=== PATIENT | female | born 1965 | race African-American/Black ===

== ENCOUNTER 2020-02-29 20:38 | Emergency (ER) | payer SELFPAY ==
[2020-02-29] MEDS ORDERED: Sodium Chloride 0.9% 1,000 ML IV ONE (21:28)
[2020-02-29] MEDS ORDERED: Ketorolac 30 MG/ML SDV IVPUSH ONE ×2 (21:28→23:41)
[2020-02-29] MEDS ORDERED: Ondansetron 4 MG/2 ML SDV IVPUSH ONE (21:28)
[2020-02-29] MEDS ORDERED: fentaNYL 100 MCG/2 ML SDV IVPUSH ONE (21:44)
[2020-02-29 22:05] LABS: ANION GAP 9.3 mEq/L (7-13); CHLORIDE,CL 104 mmol/L (98-107); SODIUM,NA 142 mmol/L (136-145)
--- NOTE | 2020-02-29 22:19 | EDM.PDOC ---
ED HPI GENERAL MEDICAL PROBLEM - General Chief Complaint: Headache Stated Complaint: HEADACHE Time Seen by Provider: 02/29/20 21:10 Source of Information: Reports: Patient, RN Notes Reviewed - History of Present Illness INITIAL COMMENTS - FREE TEXT/NARRATIVE: ED with c/o headache to top of head x 3 days with chills and sore throat. No nausea or vomiting ,diarrhea yesterday. no abdominal pain. no urinary symptoms. Recent routine testing at [facility] yesterday for COVID unknown results. No known exposure. Tried tylenol but not helping. Occipital Head Pain Score (Numeric/FACES): 10 - Related Data Allergies Allergy/AdvReac Type Severity Reaction Status Date / Time No Known Allergies Allergy Verified 02/29/20 20:54 Home Meds: Home Meds amLODIPine [Norvasc] 5 mg PO DAILY 12/02/19 [History] Past Medical History HEENT History: Reports: None Cardiovascular History: Reports: Hypertension Respiratory History: Reports: None Gastrointestinal History: Reports: None Genitourinary History: Reports: None [employer] History: Reports: Musculoskeletal History: Reports: None Neurological History: Reports: None Psychiatric History: Reports: None Endocrine/Metabolic History: Reports: Obesity/BMI 30+ Hematologic History: Reports: None Immunologic History: Reports: None Oncologic (Cancer) History: Reports: None Dermatologic History: Reports: None - Past Surgical History Cardiovascular Surgical History: Reports: None Female Surgical History: Reports: Hysterectomy Endocrine Surgical History: Reports: None Social & Family History - Family History Family Medical History: No Pertinent Family History - Tobacco Use Tobacco Use Status *Q: Never Tobacco User - Caffeine Use Caffeine Use: Reports: Coffee - Recreational Drug Use Recreational Drug Use: No ED ROS GENERAL - Review of Systems Review Of Systems: Comprehensive ROS is negative, except as noted in HPI. - Physical Exam Exam: See Below Exam Limited By: No Limitations General Appearance: Alert, Moderate Distress Eye Exam: Bilateral Eye: EOMI, PERRL, Other (photosensitivity) Ears: Normal External Exam, Hearing Grossly Normal, Normal TMs Nose: Normal Inspection Throat/Mouth: Normal Inspection, No Airway Compromise Head Exam: Atraumatic, Normocephalic Neck: Normal Inspection, Non-Tender, Lymphadenopathy (L), Lymphadenopathy (R), Other (no nuccal rigidity) Respiratory/Chest: No Respiratory Distress, Lungs Clear, Normal Breath Sounds Cardiovascular: Normal Peripheral Pulses, Regular Rate, Rhythm GI/Abdominal: Normal Bowel Sounds, Soft Neuro Exam (Abbreviated): Alert, Oriented, Normal Cognition Back Exam: Normal Inspection, Full Range of Motion Extremities: Normal Inspection, Normal Range of Motion Psychiatric: Normal Affect Skin Exam: Warm, Dry, Intact, Normal Color Course - Vital Signs Last Recorded V/S: Last Vital Signs Temp 97 F 02/29/20 20:49 Pulse 79 02/29/20 20:49 Resp 16 02/29/20 20:49 BP 138/103 H 02/29/20 20:49 Pulse Ox 100 02/29/20 20:49 - Orders/Labs/Meds Orders: Active Orders 24 hr Category Date Time Status CORONAVIRUS COVID-19 PCR PHL Stat Lab 02/29/20 21:53 Ordered CULTURE STREP A CONFIRMATION [RM] Stat Lab 02/29/20 21:40 Results STREP SCRN A RAPID W CULT CONF [RM] Stat Lab 02/29/20 21:40 Results Isolation [COMM] Routine Oth 02/29/20 21:45 Active Labs: Laboratory Tests 02/29/20 02/29/20 02/29/20 Range/Units 21:40 21:40 21:40 WBC 5.5 (5.0-10.0) 10^3/uL RBC 4.66 (4.2-5.4) 10^6/uL Hgb 13.1 (12.0-16.0) g/dL Hct 38.5 (37.0-47.0) % MCV 82.6 (80-100) fL MCH 28.1 (27.0-34.0) pg MCHC 34.0 (33.0-35.0) g/dL Plt Count 326 (150-450) 10^3/uL Neut % (Auto) 33.5 L (42.2-75.2) % Lymph % (Auto) 52.2 H (20.5-50.1) % Faulkner % (Auto) 9.6 H (2-8) % Eos % (Auto) 4.3 H (1.0-3.0) % Baso % (Auto) 0.4 (0.0-1.0) % Sodium 142 (136-145) mmol/L Potassium 3.3 L (3.5-5.1) mmol/L Chloride 104 (98-107) mmol/L Carbon Dioxide 32 (21-32) mmol/L Anion Gap 9.3 (7-13) mEq/L BUN 11 (7-18) mg/dL Creatinine 0.89 (0.55-1.02) mg/dL Est Cr Clr Drug Dosing 63.85 mL/min Estimated GFR (MDRD) > 60 BUN/Creatinine Ratio 12.4 (No establ ref range) Glucose 104 H (74-99) mg/dL Calcium 8.5 (8.5-10.1) mg/dL Total Bilirubin 0.4 (0.2-1.0) mg/dL AST 42 H (15-37) U/L ALT 73 H (14-59) U/L Alkaline Phosphatase 83 (46-116) U/L Total Protein 7.2 (6.4-8.2) g/dL Albumin 3.3 L (3.4-5.0) g/dL Globulin 3.9 Albumin/Globulin Ratio 0.85 SARS CoV-2 RNA Rapid LULU Negative (NEGATIVE) Meds: Medications Discontinued Medications Generic Name Dose Route Start Last Admin Trade Name Alex PRN Reason Stop Dose Admin Fentanyl 50 mcg 02/29/20 21:44 02/29/20 22:23 Sublimaze IVPUSH 02/29/20 21:45 50 mcg ONETIME ONE Administration Sodium Chloride 1,000 mls @ 999 mls/hr 02/29/20 21:28 02/29/20 22:15 Normal Saline IV 02/29/20 22:28 999 mls/hr .BOLUS ONE Administration Ketorolac Tromethamine 30 mg 02/29/20 21:28 Toradol IVPUSH 02/29/20 21:29 ONETIME ONE Ketorolac Tromethamine 30 mg 02/29/20 23:41 03/01/20 00:02 Toradol IVPUSH 02/29/20 23:42 30 mg ONETIME ONE Administration Ondansetron HCl 4 mg 02/29/20 21:28 02/29/20 22:21 Zofran IVPUSH 02/29/20 21:29 4 mg ONETIME ONE Administration - Re-Assessments/Exams Free Text/Narrative Re-Assessment/Exam: intermittent light dozing, no difficulty with arousal. Some improvement in GALLEGOS with medication. Departure - Departure Time of Disposition: 00:16 Disposition: Home, Self-Care 01 Condition: Good Clinical Impression: Headache Qualifiers: Headache type: unspecified Headache chronicity pattern: unspecified pattern Intractability: not intractable Qualified Code(s): R51.9 - Headache, unspecified - Discharge Information *PRESCRIPTION DRUG MONITORING PROGRAM REVIEWED*: No *COPY OF PRESCRIPTION DRUG MONITORING REPORT IN PATIENT HAYLEE: No Instructions: General Headache Without Cause, [id number] Referrals: PCP,None [Primary Care Provider] - Forms: ED Department Discharge Additional Instructions: increase fluids rest alternate tylenol and ibuprofen every 4 hours as needed for discomfort clinic follow up if not improving Sepsis Event Note (ED) - Evaluation Sepsis Screening Result: No Definite Risk - Focused Exam Vital Signs: Vital Signs Temp Pulse Resp BP Pulse Ox 02/29/20 20:49 97 F 79 16 138/103 H 100 - My Orders Last 24 Hours: My Active Orders 02/29/20 21:40 CULTURE STREP A CONFIRMATION [RM] Stat STREP SCRN A RAPID W CULT CONF [RM] Stat 02/29/20 21:45 Isolation [COMM] Routine 02/29/20 21:53 CORONAVIRUS COVID-19 PCR PHL Stat - Assessment/Plan Last 24 Hours: My Active Orders 02/29/20 21:40 CULTURE STREP A CONFIRMATION [RM] Stat STREP SCRN A RAPID W CULT CONF [RM] Stat 02/29/20 21:45 Isolation [COMM] Routine 02/29/20 21:53 CORONAVIRUS COVID-19 PCR PHL Stat
--- NOTE | 2020-02-29 22:53 | CT ---
PROCEDURE INFORMATION: Exam: CT Head Without Contrast Exam date and time: 02/29/2020 10:37 PM Age: 54 years old Clinical indication: Other: Headache TECHNIQUE: Imaging protocol: Computed tomography of the head without contrast. Radiation optimization: All CT scans at this facility use at least one of these dose optimization techniques: automated exposure control; mA and/or kV adjustment per patient size (includes targeted exams where dose is matched to clinical indication); or iterative reconstruction. COMPARISON: No relevant prior studies available. FINDINGS: Brain: Normal. No hemorrhage. Unremarkable white matter. No mass effect. Cerebral ventricles: No ventriculomegaly. Bones/joints: Unremarkable. No acute fracture. Paranasal sinuses: Visualized sinuses are unremarkable. No fluid levels. Mastoid air cells: Visualized mastoid air cells are well aerated. Soft tissues: Unremarkable. IMPRESSION: No acute intracranial abnormality.
== END 2020-03-01 00:26 | disposition home or self-care (01) ==
LOC: DL.ED 20:38
DX: R51.9 Headache, unspecified (principal); E66.9 Obesity, unspecified; Z68.36 Body mass index [BMI] 36.0-36.9, adult; Z79.899 Other long term (current) drug therapy
CPT/HCPCS: 36415; 70450; 80053; 85025; 87081; 87430; 87804; 96374; 96375; 99283; 99284-25; J1885; J2405; J3010; J7030; U0002